=== PATIENT | male | born 1940 | race Caucasian/White ===

== ENCOUNTER 2025-01-22 17:27 | Inpatient (IN) ==
[2025-01-22 18:12] LABS: Hematocrit (blood only) 41.2 % (42.0-52.0); Hemoglobin 13.6 g/dl (14.0-18.0); Immature Granulocytes # (auto) 0.08 K/uL (0.01-0.20); Immature Granulocytes % (auto) 0.7 %; Mean Corpuscular Hemoglobin 30.2 pg (25.0-34.0); Mean Corpuscular Volume 91.6 fL (80.0-100.0); Platelet Count 187 K/uL (130-400); RDW Standard Deviation 46.8 fL (36.4-46.3); Red Blood Count 4.50 M/uL (4.70-6.10); White Blood Count 11.75 K/ul (4.8-10.8)
[2025-01-22 18:30] LABS: Anion Gap 10.0 (3-11); Blood Urea Nitrogen 17.0 mg/dl (6-23); Calcium 8.6 mg/dl (8.6-10.3); Carbon Dioxide 21.0 mmol/L (21-32); Chloride 109.0 mmol/L (98-107); Creatinine Clr Calc Pharmacy 75.0 ml/min; Glucose 91.0 mg/dl (70-99(Fasting)); Potassium 3.6 mmol/L (3.5-5.1); Sodium 140.0 mmol/L (136-145)
[2025-01-22] MEDS: HYDROmorphone INJ 0.5 MG/0.5 ML SYR IV STA (18:34)
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
--- NOTE | 2025-01-22 19:17 | XRay Report ---
INDICATION: Trauma TECHNIQUE: Frontal pelvis and 2 views of the left hip were obtained. COMPARISON: None FINDINGS: Acute traumatic fracture of the intertrochanteric left femur with mild impaction and varus angulation. Evaluation of this central pelvic osseous structures is limited due to overlying bowel. Aortobiiliac stent and embolization materials over the pelvis. IMPRESSION: Acute traumatic fracture of the intertrochanteric left femur with mild impaction and varus angulation. Electronically signed by German Phelan 01-22-2025 7:16 PM
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
[2025-01-22] MEDS: ACETAMINOPHEN 1,000 MG/100 ML VIAL IV STA (19:56)
[2025-01-22] MEDS: SODIUM CHLORIDE 0.9% 1,000 ML IV ONE (20:15)
[2025-01-22 20:21] LABS: INR 1.1 (0.9-1.1); Prothrombin Time 11.5 Seconds (9.0-12.0)
[2025-01-22] MEDS: ATORVASTATIN 40 MG TAB PO STA (20:39)
[2025-01-22] MEDS: POTASSIUM CHLORIDE / WTR 10 MEQ/100 ML PLCT IV SCH (20:40)
[2025-01-22] MEDS: LACTATED RINGER'S 1,000 ML IV SCH (20:43)
[2025-01-22] MEDS ORDERED: ONDANSETRON INJ 2 MG/ML 2 ML VIAL IV PRN (20:48)
[2025-01-22] MEDS ORDERED: NALOXONE HCL 0.4 MG/1 ML VIAL/CARP IV PRN (20:48)
[2025-01-22] MEDS ORDERED: MAGNESIUM HYDROXIDE SUSP 30 ML UDC PO PRN (20:48)
[2025-01-22] MEDS ORDERED: MoRPHine SULFATE 2 MG/ML CARP IV PRN (20:48)
[2025-01-22] MEDS ORDERED: DOCUSATE SODIUM 100 MG CAP PO PRN (20:48)
[2025-01-22 20:54] LABS: Alanine Aminotransferase 9.0 U/L (7-52); Albumin Level 2.9 gm/dl (3.4-5.0); Alkaline Phosphatase 75.0 U/L (34-104); Bilirubin,Total 0.8 mg/dl (0.2-1.0); Magnesium 1.6 mg/dl (1.7-2.4); Total Protein 4.9 gm/dl (6.0-8.3)
--- NOTE | 2025-01-22 21:12 | XRay Report ---
Exam(s): XR CXR 1 VIEW EXAM: XR Chest, 1 View CLINICAL HISTORY: fall, pre-op. TECHNIQUE: Frontal view of the chest. COMPARISON: No relevant prior studies available. FINDINGS: Lungs: Mildly elevated left hemidiaphragm. No infiltrate. No atelectasis. No CHF. Pleural space: No pleural effusion. No pneumothorax. Heart: Unremarkable. No cardiomegaly. Mediastinum: Dextroscoliosis with degenerative changes of the spine and bilateral shoulders. Normal mediastinal contour. Bones/joints: Unremarkable. No acute fracture. IMPRESSION: Mildly elevated left hemidiaphragm. No CHF or infiltrate. Electronically signed by: Deandre Barragan M.D. 01/22/25 21:12 PM
[2025-01-22] MEDS: MAGNESIUM SULFATE / D5W 1 GM/100 ML BAG IV SCH (21:55)
[2025-01-22 23:25] LABS: Appearance Urine Clear (Clear); Glucose Urine UA Negative (Negative)
[2025-01-23] MEDS: MoRPHine SULFATE 4 MG/ML 1 ML CARP\\VIAL IV PRN (02:51)
[2025-01-23 05:05] LABS: Hematocrit (blood only) 31.0 % (42.0-52.0); Hemoglobin 10.5 g/dl (14.0-18.0); Immature Granulocytes # (auto) 0.05 K/uL (0.01-0.20); Immature Granulocytes % (auto) 0.5 %; Mean Corpuscular Hemoglobin 31.1 pg (25.0-34.0); Mean Corpuscular Volume 91.7 fL (80.0-100.0); Platelet Count 126 K/uL (130-400); RDW Standard Deviation 46.4 fL (36.4-46.3); Red Blood Count 3.38 M/uL (4.70-6.10); White Blood Count 9.79 K/ul (4.8-10.8)
[2025-01-23 05:08] LABS: Alanine Aminotransferase 7.0 U/L (7-52); Albumin Globulin Ratio 1.6 (0.9-2); Albumin Level 2.8 gm/dl (3.4-5.0); Alkaline Phosphatase 73.0 U/L (34-104); Anion Gap 6.0 (3-11); Bilirubin,Total 1.0 mg/dl (0.2-1.0); Blood Urea Nitrogen 16.0 mg/dl (6-23); Calcium 7.7 mg/dl (8.6-10.3); Carbon Dioxide 22.0 mmol/L (21-32); Chloride 109.0 mmol/L (98-107); Creatinine Clr Calc Pharmacy 84.3 ml/min; Globulin 1.8 gm/dl (2.5-4.0); Glucose 122.0 mg/dl (70-99(Fasting)); Potassium 3.6 mmol/L (3.5-5.1); Sodium 137.0 mmol/L (136-145); Total Protein 4.6 gm/dl (6.0-8.3)
[2025-01-23] MEDS: ACETAMINOPHEN 1,000 MG/100 ML VIAL IV PRN (05:40)
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
[2025-01-23] MEDS: FINASTERIDE 5 MG TAB PO SCH (08:54)
--- NOTE | 2025-01-23 09:51 | XRay Report ---
XR femur LT 2V routine CLINICAL HISTORY: fx, OR planning COMPARISON: 01/22/2025 FINDINGS: Acute minimally displaced mildly comminuted intertrochanteric fracture proximal left femur has stable alignment. No other fracture or dislocation seen at the left femur. No hardware complicat ion seen at the left knee prosthesis. IMPRESSION: Stable alignment at the proximal femur fracture. ACT 112: Negative or not required by law. Electronically signed by: Brendon Larios M.D. 01/23/2025 9:49 AM
--- NOTE | 2025-01-23 11:58 | Electrocardiogram Report ---
Test Reason : Blood Pressure : */* mmHG Vent. Rate : 74 BPM Atrial Rate : 74 BPM P-R Int : 142 ms QRS Dur : 88 ms QT Int : 402 ms P-R-T Axes : 79 -40 25 degrees QTcB Int : 446 ms Sinus rhythm with occasional Premature ventricular complexes Left axis deviation Abnormal ECG Confirmed by Shine Barros ([id number]) on 01/23/2025 11:57:53 AM Referred By: REFERRED SELF Confirmed By: Shine Barros
[2025-01-23] MEDS: LACTATED RINGER'S 1,000 ML IV SCH (12:18)
[2025-01-23] MEDS ORDERED: ATROPINE SULFATE 0.1 MG/ML 10ML SYR IV PRN (12:32)
[2025-01-23] MEDS ORDERED: PROMETHAZINE HCL 6.25 MG in SODIUM CHLORIDE 0.9% 50 ML IV PRN (12:32)
[2025-01-23] MEDS ORDERED: ONDANSETRON INJ 2 MG/ML 2 ML VIAL IV PRN (12:32)
--- NOTE | 2025-01-23 12:32 | Anesthesiology Consultation ---
Date of Service January 23, 2025 Assessment & Plan Chart Review Chart Review: Acceptable Risk for Surgery and Patient NOT seen in Pre Admission Testing Consults Requested none ASA ASA2 Proposed Anesthesia Anesthesia Type: MAC Spinal Risk / Benefits Reviewed With: PT / POA / Parent / Guardian, Accepts Plan and Informed Consent Obtained History Surgery Operation Date: 01/23/25 09:20 Proposed Procedures p Left Long Troch Nail - Sujit Coronado MD Height/Weight Height: 6 ft Weight: 84.9 kg Allergies Allergy/AdvReac Type Severity Reaction Status Date / Time No Known Allergies Allergy Verified 01/22/25 21:14 Medications Home Medications Medication Instructions Recorded Confirmed Last Taken acetaminophen 500 mg tablet 500 - 1,000 mg PO Q6H PRN Pain 01/22/25 01/22/25 Unknown (Tylenol Extra Strength) aspirin 81 mg tablet,delayed 81 mg PO QAM 01/22/25 01/22/25 01/22/25 release atorvastatin 40 mg tablet 40 mg PO HS 01/22/25 01/22/25 01/21/25 finasteride 5 mg tablet 5 mg PO QAM 01/22/25 01/22/25 01/22/25 metoprolol succinate 25 mg 25 mg PO QAM 01/22/25 01/22/25 01/22/25 tablet,extended release 24 hr omeprazole 20 mg capsule,delayed 20 mg PO QAM 01/22/25 01/22/25 01/22/25 release Active Medications Generic Name Dose Route Start Last Admin Trade Name Freq PRN Reason Stop Dose Admin Finasteride 5 mg 01/23/25 09:00 01/23/25 08:54 Finasteride 5 Mg Tab PO 02/22/25 08:59 Not Given QAM DICKSON Acetaminophen 1,000 mg in 100 mls @ 400 mls/hr 01/22/25 20:48 01/23/25 06:21 Ofirmev IV 01/25/25 20:47 Infused Q8H PRN Infusion Pain or Fever Lactated Ringer's 1,000 mls @ 15 mls/hr 01/23/25 12:30 01/23/25 12:18 Lr IV 01/26/25 07:09 15 mls/hr .Q24H DICKSON Administration Morphine Sulfate 4 mg 01/22/25 20:48 01/23/25 09:42 Morphine Sulfate 4 Mg/Ml 1 Ml Carp\Vial IV 02/05/25 20:47 4 mg Q6H PRN Administration Severe Pain (Scale 7, 8, 9,10) Pantoprazole Sodium 40 mg 01/23/25 09:00 01/23/25 08:54 Pantoprazole 40 Mg Tab PO 02/22/25 08:59 Not Given QAM DICKSON NPO Date Last Intake of Fluids: 01/22/25 Time Last Intake of Fluids: 21:00 Date Last Intake of Solids: 01/22/25 Time Last Intake of Solids: 19:00 Exercise / Class Metabolic Activity II 4-5 Yardwork/Stairs/Walk up hill Past Anesthesia History No Hx of Anesthesia Complications and No Family Hx of Anesthesia Complications History of PONV No Hx of PONV and No Hx of Motion Sickness Social History Smoking Status: Never smoker Hx Alcohol Use: No Hx Substance Use: No Physical Exam Vital Signs Last Vital Signs Temp 36.6 C 01/23/25 12:05 Pulse 74 01/23/25 12:05 Resp 20 01/23/25 12:05 BP 136/80 01/23/25 12:05 Pulse Ox 93 01/23/25 12:05 O2 Del Method Room Air 01/23/25 12:05 ENMT Mouth: no dentition abnormality Thyromental Distance: > or= 3.5 Finger Breadths Mallampati Class: II Neck normal visual inspection Respiratory normal respiratory effort Auscultation: lungs clear to auscultation bilaterally Cardiovascular Rate/Rhythm: regular rate and regular rhythm Psychiatric Orientation: alert Testing Laboratory Results 01/23/25 04:14 01/23/25 04:14 PT 11.5 Seconds (9.0-12.0) 01/22/25 18:00 INR 1.1 (0.9-1.1) 01/22/25 18:00 Urine Color Yellow 01/22/25 Unknown Urine Appearance Clear (Clear) 01/22/25 Unknown Urine pH 5.5 (4.5-7.5) 01/22/25 Unknown Ur Specific [place] 1.022 (1.000-1.030) 01/22/25 Unknown Urine Protein Negative (Negative) 01/22/25 Unknown Urine Glucose (UA) Negative (Negative) 01/22/25 Unknown Urine Ketones 1+ (Negative) H 01/22/25 Unknown Urine Nitrite Negative (Negative) 01/22/25 Unknown Ur Leukocyte Esterase Negative (Negative) 01/22/25 Unknown Blood Type B Positive 01/23/25 04:14 Antibody Screen NEGATIVE 01/23/25 04:14
[2025-01-23] MEDS ORDERED: PROPOFOL IV EMULSION 10 MG/ML 20 ML VIAL IV ONE ×2 (12:47→13:53)
[2025-01-23] MEDS ORDERED: LIDOCAINE 2% 2 ML VIAL/AMP(20MG/ML) INFIL ONE (12:47)
[2025-01-23] MEDS ORDERED: KETAMINE HCL 10MG/ML SYR ONE (12:49)
--- NOTE | 2025-01-23 12:51 | History & Physical Bridge Note ---
Date of Service January 23, 2025 History & Physical Bridge Note I have examined the patient, reviewed the History & Physical and in the interval since the performance of the History & Physical I have noted the following changes of clinical significance: no changes noted
[2025-01-23] MEDS ORDERED: TRANEXAMIC ACID / 0.7% NACL 1,000 MG/100 ML BAG IV ONE (12:53)
[2025-01-23] MEDS: TRANEXAMIC ACID 100 MG/ML 10 ML VIAL IV ONE (13:07)
[2025-01-23] MEDS: TRANEXAMIC ACID / 0.7% NACL 1000MG/100ML BAG IV ONE (13:07)
[2025-01-23] MEDS: BUPIVACAINE/EPINEPHRINE 0.5% MPF 1:200,000 30 ML VIAL ONE (13:52)
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
--- NOTE | 2025-01-23 15:02 | Fluoroscopy Report ---
FL hip LT 2-3V CLINICAL HISTORY: LEFT HIP FX COMPARISON STUDY: 01/23/2025 FLUOROSCOPY TIME: 111 seconds FLUOROSCOPY IMAGES: 6 EXPOSURE DOSE: 34 mGy FINDINGS: Fluoroscopy was provided for left femoral gamma nail. IMPRESSION: Intraoperative fluoroscopy. ACT 112: Negative or not required by law. Electronically signed by: Brendon Larios M.D. 01/23/2025 3:01 PM
--- NOTE | 2025-01-23 15:26 | Anesthesiology Progress Note ---
Date of Service January 23, 2025 Anesthesia Post Procedure Vital Signs Vital Signs: Temp Pulse Pulse Pulse Resp BP BP 01/23/25 15:20 77 17 01/23/25 15:10 75 16 01/23/25 15:00 78 16 01/23/25 14:51 36.7 C 88 18 01/23/25 12:05 36.6 C 74 20 136/80 01/23/25 10:59 36.4 C L 66 18 121/68 01/23/25 08:00 66 01/23/25 07:25 36.4 C L 68 18 121/73 01/23/25 05:53 36.7 C 66 18 119/71 01/23/25 03:00 36.5 C 70 18 118/64 01/23/25 02:00 65 20 108/65 01/23/25 00:23 77 01/22/25 23:00 76 22 130/85 01/22/25 22:05 01/22/25 22:05 103 H 16 105/64 01/22/25 20:45 77 20 118/67 01/22/25 20:30 67 17 110/64 01/22/25 20:15 70 18 64/44 L 01/22/25 20:15 78/60 L 01/22/25 20:09 68 20 63/43 L 01/22/25 20:00 66 20 84/56 L 01/22/25 19:30 78 19 101/60 01/22/25 19:00 77 20 127/79 01/22/25 18:27 78 19 140/64 01/22/25 18:23 67 01/22/25 17:39 36.5 C 69 18 121/86 BP Pulse Ox Pulse Ox O2 Del Method O2 Flow Rate 01/23/25 15:20 111/69 97 Oxymask 2 01/23/25 15:10 113/67 99 Oxymask 2 01/23/25 15:00 115/67 99 Oxymask 4 01/23/25 14:51 67/42 L 98 Oxymask 6 01/23/25 12:05 93 Room Air 01/23/25 10:59 92 Room Air 01/23/25 08:00 01/23/25 07:25 95 Room Air 01/23/25 05:53 96 Room Air 01/23/25 03:00 95 Room Air 01/23/25 02:00 93 01/23/25 00:23 01/22/25 23:00 95 01/22/25 22:05 96 01/22/25 22:05 95 Room Air 01/22/25 20:45 94 Room Air 01/22/25 20:30 96 Room Air 01/22/25 20:15 95 Room Air 01/22/25 20:15 01/22/25 20:09 91 Room Air 01/22/25 20:00 92 Room Air 01/22/25 19:30 94 Room Air 01/22/25 19:00 98 Room Air 01/22/25 18:27 98 Room Air 01/22/25 18:23 01/22/25 17:39 97 Room Air Pain Intensity Left Hip: Pain Intensity: 5 Transfer of Care Handoff Completed per policy Notes Mental Status: alert / awake / arousable Patient Amnestic to Procedure: Yes Nausea / Vomiting: adequately controlled Pain: adequately controlled Airway Patency, RR, SpO2: stable & adequate BP & HR: stable & adequate Hydration State: stable & adequate Neuraxial Anesthesia: was administered Anesthetic Complications: no major complications apparent
[2025-01-23] MEDS: ATORVASTATIN 40 MG TAB PO SCH (20:44)
[2025-01-23] MEDS: ASPIRIN 81 MG ECTAB PO SCH (20:44)
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
[2025-01-24 05:54] LABS: Hematocrit (blood only) 28.9 % (42.0-52.0); Hemoglobin 9.6 g/dl (14.0-18.0); Immature Granulocytes # (auto) 0.09 K/uL (0.01-0.20); Immature Granulocytes % (auto) 0.7 %; Mean Corpuscular Hemoglobin 30.9 pg (25.0-34.0); Mean Corpuscular Volume 92.9 fL (80.0-100.0); Platelet Count 112 K/uL (130-400); RDW Standard Deviation 47.1 fL (36.4-46.3); Red Blood Count 3.11 M/uL (4.70-6.10); White Blood Count 13.74 K/ul (4.8-10.8)
[2025-01-24 06:11] LABS: Anion Gap 7.0 (3-11); Blood Urea Nitrogen 20.0 mg/dl (6-23); Calcium 7.6 mg/dl (8.6-10.3); Carbon Dioxide 21.0 mmol/L (21-32); Chloride 105.0 mmol/L (98-107); Creatinine Clr Calc Pharmacy 85.0 ml/min; Glucose 130.0 mg/dl (70-99(Fasting)); Potassium 4.0 mmol/L (3.5-5.1); Prealbumin 13.4 mg/dl (20-40); Sodium 133.0 mmol/L (136-145)
[2025-01-24] MEDS: MoRPHine SULFATE 4 MG/ML 1 ML CARP\\VIAL IV PRN (09:08)
--- NOTE | 2025-01-24 09:08 | Orthopedic Progress Note ---
Date of Service January 24, 2025 Assessment & Plan (1) Closed left femoral fracture: * Continue Current Treatment * S/p left TFN * Weight bearing status: WBAT, no restrictions * Daily treatment: Physical Therapy/ Occupational Therapy per protocol * Pain control * Continue to monitor for ABLA * DVT prophylaxis, ok to resume from ortho standpoint * Disposition: TBD * Office/hospital f/u 2 weeks for progress check and staple/suture removal * Remainder care per primary team Subjective . Active Problems: S/p left TFN POD 1 84y/o male s/p left TFN. Doing well overall, pain managed and improved function. Denies fever/chills, chest pain/SOB, nausea/vomiting. Otherwise no complaints. Review of Systems All systems reviewed & are unremarkable except as noted in HPI & below. Physical Exam . * General: Alert and oriented, no acute distress * Constitutional: well-developed, well-nourished. * Respiratory: Normal respiratory effort, no distress * Gastrointestinal: No tenderness to palpation, no rigidity or guarding. * Skin: No rash or lesion. * Neurologic: Grossly normal * Musculoskeletal: Left hip surgical dressing CDI, not removed for exam. Otherwise no obvious deformity or overlying skin changes. Diffuse TTP proximal thigh and hip region. Otherwise no specific tenderness of distal thigh, lower leg, foot/ankle. AROM hip flexion intact. AROM foot/ankle intact. Sensation intact plantar/dorsal foot. Brisk capillary refill. Results & Data Results & Data Laboratory Results . Diagnostic Findings . Femur X-Ray 01/23/25 07:35 XR femur LT 2V routine CLINICAL HISTORY: fx, OR planning COMPARISON: 01/22/2025 FINDINGS: Acute minimally displaced mildly comminuted intertrochanteric fracture proximal left femur has stable alignment. No other fracture or dislocation seen at the left femur. No hardware complication seen at the left knee prosthesis. IMPRESSION: Stable alignment at the proximal femur fracture. ACT 112: Negative or not required by law. Electronically signed by: Brendon Larios M.D. 01/23/2025 9:49 AM Hip X-Ray 01/23/25 12:30 FL hip LT 2-3V CLINICAL HISTORY: LEFT HIP FX COMPARISON STUDY: 01/23/2025 FLUOROSCOPY TIME: 111 seconds FLUOROSCOPY IMAGES: 6 EXPOSURE DOSE: 34 mGy FINDINGS: Fluoroscopy was provided for left femoral gamma nail. IMPRESSION: Intraoperative fluoroscopy. ACT 112: Negative or not required by law. Electronically signed by: Brendon Larios M.D. 01/23/2025 3:01 PM PG Care Time/CCT Total # of Minutes Spent Total Time Spent with Patient: Total time spent is greater than 50% in coordination of care (as documented) at patient's floor/unit and/or counseling patient: Coding Level of Care Code 49515 Post Operative Follow-Up Diagnoses Closed left femoral fracture S72.92XA
[2025-01-24] MEDS: SODIUM CHLORIDE 0.9% 1,000 ML IV STA (09:37)
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
--- NOTE | 2025-01-25 07:33 | Orthopedic Progress Note ---
Date of Service January 25, 2025 Assessment & Plan (1) Closed left femoral fracture: * Continue Current Treatment * S/p left TFN * Weight bearing status: WBAT, no restrictions * Daily treatment: Physical Therapy/ Occupational Therapy per protocol * Pain control * Continue to monitor for ABLA * DVT prophylaxis, ok to resume from ortho standpoint * Disposition: TBD * Office/hospital f/u 2 weeks for progress check and staple/suture removal * Remainder care per primary team Subjective Active Problems: S/p left TFN POD 2 84y/o male s/p left TFN. Doing well overall, pain managed and improved function. Denies fever/chills, chest pain/SOB, nausea/vomiting. Otherwise no complaints. Review of Systems All systems reviewed & are unremarkable except as noted in HPI & below. Physical Exam * Musculoskeletal: Left hip surgical dressing CDI, not removed for exam. Otherwise no obvious deformity or overlying skin changes. Diffuse TTP proximal thigh and hip region. Otherwise no specific tenderness of distal thigh, lower leg, foot/ankle. AROM hip flexion intact. AROM foot/ankle intact. Sensation intact plantar/dorsal foot. Brisk capillary refill. Results & Data Results & Data Laboratory Results . Diagnostic Findings . PG Care Time/CCT Total # of Minutes Spent Total Time Spent with Patient: Total time spent is greater than 50% in coordination of care (as documented) at patient's floor/unit and/or counseling patient: Coding Level of Care Code 08150 Post Operative Follow-Up Diagnoses Closed left femoral fracture S72.92XA
[2025-01-25 09:15] LABS: Hematocrit (blood only) 26.9 % (42.0-52.0); Hemoglobin 9.0 g/dl (14.0-18.0); Immature Granulocytes # (auto) 0.08 K/uL (0.01-0.20); Immature Granulocytes % (auto) 0.7 %; Mean Corpuscular Hemoglobin 31.0 pg (25.0-34.0); Mean Corpuscular Volume 92.8 fL (80.0-100.0); Platelet Count 119 K/uL (130-400); RDW Standard Deviation 47.3 fL (36.4-46.3); Red Blood Count 2.90 M/uL (4.70-6.10); White Blood Count 10.81 K/ul (4.8-10.8)
[2025-01-25 09:32] LABS: Albumin Level 2.7 gm/dl (3.4-5.0); Magnesium 1.8 mg/dl (1.7-2.4)
[2025-01-25 10:27] LABS: Anion Gap 8.0 (3-11); Blood Urea Nitrogen 19.0 mg/dl (6-23); Calcium 7.7 mg/dl (8.6-10.3); Carbon Dioxide 21.0 mmol/L (21-32); Chloride 109.0 mmol/L (98-107); Creatinine Clr Calc Pharmacy 64.2 ml/min; Glucose 121.0 mg/dl (70-99(Fasting)); Potassium 3.6 mmol/L (3.5-5.1); Sodium 138.0 mmol/L (136-145)
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
--- NOTE | 2025-01-26 07:49 | Orthopedic Progress Note ---
Date of Service January 26, 2025 Assessment & Plan (1) Closed left femoral fracture: * Continue Current Treatment * S/p left TFN * Weight bearing status: WBAT, no restrictions * Daily treatment: Physical Therapy/ Occupational Therapy per protocol * Pain control * Continue to monitor for ABLA * DVT prophylaxis, ok to resume from ortho standpoint * Disposition: TBD * Office/hospital f/u 2 weeks for progress check and staple/suture removal * Remainder care per primary team Subjective Active Problems: S/p left TFN POD 3 84y/o male s/p left TFN. Doing well overall, pain managed and improved function. Denies fever/chills, chest pain/SOB, nausea/vomiting. Otherwise no complaints. Review of Systems All systems reviewed & are unremarkable except as noted in HPI & below. Physical Exam * Musculoskeletal: Left hip surgical dressing CDI, not removed for exam. Otherwise no obvious deformity or overlying skin changes. Diffuse TTP proximal thigh and hip region. Otherwise no specific tenderness of distal thigh, lower leg, foot/ankle. AROM hip flexion intact. AROM foot/ankle intact. Sensation intact plantar/dorsal foot. Brisk capillary refill. Results & Data Results & Data Laboratory Results . Diagnostic Findings . PG Care Time/CCT Total # of Minutes Spent Total Time Spent with Patient: Total time spent is greater than 50% in coordination of care (as documented) at patient's floor/unit and/or counseling patient: Coding Level of Care Code 37890 Post Operative Follow-Up Diagnoses Closed left femoral fracture S72.92XA
[2025-01-26] MEDS: MAGNESIUM CITRATE 296 ML/BTL PO STA (11:18)
[2025-01-26] MEDS: CHOLECALCIFEROL 10 MCG (400 UNITS) TAB PO SCH (11:32)
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
[2025-01-26] MEDS: ACETAMINOPHEN 325 MG TAB PO PRN (20:51)
[2025-01-26] MEDS: MELATONIN 3 MG TAB PO PRN (22:47)
--- NOTE | 2025-01-27 07:10 | Orthopedic Progress Note ---
Date of Service January 27, 2025 Assessment & Plan (1) Closed left femoral fracture: Plan: 84-year-old gentleman status post IM nailing of a left inotrope fracture doing reasonably well. His pain seems to be improving. Just waiting for placement. Plan: 1. DVT prophylaxis including thigh-high teds, SCDs, aspirin twice a day. 2. PT/OT. Can fully weight-bear as tolerated. 3. Medical management as per the medicine service. 4. Disposition. He is orthopedically okay for discharge anytime medically stable. I need to see him back 2 to 3 weeks out from surgery date. Any orthopedic questions can be directly [phone]. Admission and Anticipated Discharge Date Admission Date: January 22, 2025 Subjective 83-year-old gentleman status post IM nailing of a intertrochanteric hip fracture. Seems to doing a little bit better this morning. Continues to have pain but getting better. No new complaints. He says his pain is pretty well- controlled currently. His biggest issue this morning was that just needing a bowel movement. Physical Exam Physical Exam: Physical emanation of the left hip and leg reveals leg to be well aligned. Dressings clean dry and intact. Thigh is soft and supple. He is neurologically intact. Results & Data Vital Signs (Past 12 Hours) Vital Signs Temp Pulse Resp BP Pulse Ox O2 Del Method 01/26/25 22:37 36.7 C 72 18 113/65 93 Room Air
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
--- NOTE | 2025-01-28 08:03 | Orthopedic Progress Note ---
Date of Service January 28, 2025 Assessment & Plan (1) Closed left femoral fracture: Plan: 84-year-old gentleman now 5 days out from IM nailing of a left inotrope fracture doing reasonably well. Seems to be getting better daily. Pain seems controlled this morning. Plan: 1. DVT prophylaxis including thigh-high teds, SCDs, aspirin twice a day. 2. PT/OT. Can fully weight-bear as tolerated. 3. Pain control. Doing okay with current pain regimen. 4. Disposition. He is orthopedically okay for discharge anytime. I did see him back 2 to 3 weeks out from surgery date. He can fully weight-bear as tolerated. Any orthopedic questions can be directly [phone]. (2) Hyperlipidemia: (3) Hypertension: Admission and Anticipated Discharge Date Admission Date: January 22, 2025 Subjective 84-year-old gentleman now well 5 days out from IM nailing of left inotrope fracture. Seems to get a little bit better each day. Pain is controlled this morning. Denies any chest pain or shortness of breath. Physical Exam Physical Exam: Physical nation is a pleasant elderly male. He is lying in bed looks pretty comfortable this morning. Examination left leg reveals the dressings to be clean dry and intact. Leg is well aligned. Thigh is soft and supple. He is neurologically intact. Results & Data Vital Signs (Past 12 Hours) Vital Signs Temp Pulse Pulse Resp BP Pulse Ox O2 Del Method 01/28/25 07:21 36.4 C L 82 18 108/68 96 Room Air 01/28/25 03:45 36.9 C 76 18 112/73 94 Room Air 01/27/25 22:59 36.9 C 84 18 107/62 95 Room Air 01/27/25 21:48 88
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
[2025-01-29 12:58] LABS: Hematocrit (blood only) 29.5 % (42.0-52.0); Hemoglobin 9.5 g/dl (14.0-18.0); Immature Granulocytes # (auto) 0.13 K/uL (0.01-0.20); Immature Granulocytes % (auto) 1.1 %; Mean Corpuscular Hemoglobin 30.2 pg (25.0-34.0); Mean Corpuscular Volume 93.7 fL (80.0-100.0); Platelet Count 259 K/uL (130-400); RDW Standard Deviation 47.4 fL (36.4-46.3); Red Blood Count 3.15 M/uL (4.70-6.10); White Blood Count 12.23 K/ul (4.8-10.8)
[2025-01-29 13:23] LABS: Anion Gap 10.0 (3-11); Calcium 8.0 mg/dl (8.6-10.3); Carbon Dioxide 21.0 mmol/L (21-32); Chloride 106.0 mmol/L (98-107); Potassium 4.0 mmol/L (3.5-5.1); Sodium 137.0 mmol/L (136-145)
[2025-01-29 13:29] LABS: Blood Urea Nitrogen 24.0 mg/dl (6-23); Creatinine Clr Calc Pharmacy 57.5 ml/min; Glucose 115.0 mg/dl (70-99(Fasting))
[2025-01-29] MEDS: SODIUM CHLORIDE 0.9% 500 ML IV ONE (18:18)
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
[2025-01-30 04:47] LABS: Appearance Urine Clear (Clear); Bacteria Urine Automated None Seen (None Seen); Cast Urine Automated 0-2 /lpf (0-2); Epithelial Cell Urine Auto 0-2 /hpf (0-2); Glucose Urine UA Negative (Negative); RBC Urine Automated 0-2 /hpf (0-2); WBC Urine Automated 0-5 /hpf (0-5)
[2025-01-30 07:36] LABS: Hematocrit (blood only) 26.3 % (42.0-52.0); Hemoglobin 8.8 g/dl (14.0-18.0); Immature Granulocytes # (auto) 0.09 K/uL (0.01-0.20); Immature Granulocytes % (auto) 0.8 %; Mean Corpuscular Hemoglobin 30.8 pg (25.0-34.0); Mean Corpuscular Volume 92.0 fL (80.0-100.0); Platelet Count 244 K/uL (130-400); RDW Standard Deviation 46.7 fL (36.4-46.3); Red Blood Count 2.86 M/uL (4.70-6.10); White Blood Count 11.59 K/ul (4.8-10.8)
[2025-01-30 07:51] LABS: Anion Gap 8.0 (3-11); Blood Urea Nitrogen 24.0 mg/dl (6-23); Calcium 8.0 mg/dl (8.6-10.3); Carbon Dioxide 22.0 mmol/L (21-32); Chloride 107.0 mmol/L (98-107); Creatinine Clr Calc Pharmacy 72.7 ml/min; Glucose 116.0 mg/dl (70-99(Fasting)); Potassium 3.9 mmol/L (3.5-5.1); Sodium 137.0 mmol/L (136-145)
[2025-01-30] MEDS: FINASTERIDE 5 MG TAB PO SCH (08:34)
[2025-01-30] MEDS: MIDODRINE HCL 2.5 MG TAB PO SCH (12:00)
--- NOTE | 2025-01-30 14:16 | Orthopedic Progress Note ---
Date of Service January 30, 2025 Assessment & Plan (1) Closed left femoral fracture: Plan: 84-year-old gentleman now 1 week out from IM nailing of a left inotrope fracture orthopedically doing pretty well. Appears stable. Pain is controlled. He seems to be having actually more right knee pain from his knee arthritis than hip pain. Plan: 1. DVT prophylaxis including thigh-high teds, SCDs, aspirin twice a day. 2. PT/OT. Weight-bear as tolerated. 3. Pain control. Doing okay with current pain regimen. 4. Medical management as per the medicine service. 5. Disposition. He is orthopedically okay for discharge anytime medically stable. I need to see him back 2 to 3 weeks out from surgery date. Routine wound care left hip. Any orthopedic questions can recommend [phone] Admission and Anticipated Discharge Date Admission Date: January 22, 2025 Subjective 84-year-old gentleman postop from IM nailing of a left inner troches fracture. He is doing pretty well orthopedically. No pain at all when he is stationary but having pain when he ambulates. He is having quite a bit of right knee pain from some severe right knee arthritis. Physical Exam Physical Exam: Physical nation was a pleasant early male. Is lying in bed looks pretty comfortable. Examination of the left leg reveals the dressing be clean dry and intact. Leg lengths are equal. Thigh is soft and supple. He is neurologically intact. Results & Data Vital Signs (Past 12 Hours) Vital Signs Temp Pulse Pulse Resp BP Pulse Ox O2 Del Method 01/30/25 11:08 87 01/30/25 07:43 36.4 C L 73 19 105/63 96 Room Air 01/30/25 03:00 36.6 C 79 18 119/54 L 93 Room Air Laboratory Results Hemoglobin is 8.8. Hematocrit 26.3. Electrolytes are stable
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
[2025-01-31 11:02] LABS: Hematocrit (blood only) 26.4 % (42.0-52.0); Hemoglobin 8.8 g/dL (14.0-18.0); Immature Granulocytes # (auto) 0.12 K/uL (0.01-0.20); Immature Granulocytes % (auto) 1.2 %; Mean Corpuscular Hemoglobin 30.9 pg (25.0-34.0); Mean Corpuscular Volume 92.6 fL (80.0-100.0); Platelet Count 276 K/uL (130-400); RDW Standard Deviation 47.8 fL (36.4-46.3); Red Blood Count 2.85 M/uL (4.70-6.10); White Blood Count 10.09 K/ul (4.8-10.8)
[2025-01-31 11:12] LABS: Anion Gap 6.0 (3-11); Calcium 7.6 mg/dl (8.6-10.3); Carbon Dioxide 23.0 mmol/L (21-32); Chloride 108.0 mmol/L (98-107); Potassium 3.9 mmol/L (3.5-5.1); Sodium 137.0 mmol/L (136-145)
[2025-01-31 11:18] LABS: Blood Urea Nitrogen 22.0 mg/dl (6-23); Creatinine Clr Calc Pharmacy 76.4 ml/min; Glucose 119.0 mg/dl (70-99(Fasting))
[2025-01-31] MEDS ORDERED: SODIUM CHLORIDE 0.9% 100 ML IV PRN (12:57)
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
[2025-02-01 06:00] LABS: Hematocrit (blood only) 28.3 % (42.0-52.0); Hemoglobin 9.2 g/dL (14.0-18.0); Mean Corpuscular Hemoglobin 29.3 pg (25.0-34.0); Mean Corpuscular Volume 90.1 fL (80.0-100.0); Platelet Count 267 K/uL (130-400); RDW Standard Deviation 54.7 fL (36.4-46.3); Red Blood Count 3.14 M/uL (4.70-6.10); White Blood Count 8.26 K/ul (4.8-10.8)
[2025-02-01 09:42] LABS: Anion Gap 8.0 (3-11); Blood Urea Nitrogen 21.0 mg/dl (6-23); Calcium 8.2 mg/dl (8.6-10.3); Carbon Dioxide 22.0 mmol/L (21-32); Chloride 108.0 mmol/L (98-107); Creatinine Clr Calc Pharmacy 73.6 ml/min; Glucose 129.0 mg/dl (70-99(Fasting)); Potassium 4.4 mmol/L (3.5-5.1); Sodium 138.0 mmol/L (136-145)
[2025-02-01 09:55] LABS: Hematocrit (blood only) 29.4 % (42.0-52.0); Hemoglobin 9.5 g/dL (14.0-18.0)
[2025-02-01 11:29] VITALS: RESP 19; TEMP 97.5; O2SAT 92
[2025-02-01] MEDS: MIDODRINE HCL 2.5 MG TAB PO SCH (11:35)
[2025-02-01 14:09] VITALS: BP 107/58; PULSE 80
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
== END 2025-02-01 15:51 | DRG 481 ==
LOC: ED 17:27 → SUATTDRO 19:47 → EDINP 19:47 → 4W 20:49